=== PATIENT | female | born 1970 | race Caucasian/White ===

== ENCOUNTER 2017-11-06 04:15 | Inpatient (IN) | payer OTHER ==
[~2017-11-06] VITALS: Ht 160 cm; Wt 141.0 kg
[~2017-11-06 04:15] MED LIST: ACETAZOLAMIDE250 M1 PO; ATIVAN0.5 M1 PO; CALTRATE 600 +1 EACH PO; CLARITIN10 M1 PO; VITAMIN D1000 UNIT PO
--- NOTE | 2017-11-06 13:57 | Operative Report ---
Operative/Inv Procedure Report Surgery Date: 11/06/17 Name of Procedure: Laparoscopic Sleeve Gastrectomy Pre-Operative Diagnosis: Morbid Obesity BMI 55, ROBERT, Pseudotumor Cerebri Post-Operative Diagnosis: Same Estimated Blood Loss: less than 50ml Surgeon/Felt Pad Cutter: Ruben Uribe DO Anesthesia: general endotracheal tube IV Fluids: 1000 cc Drains: None Specimens: Stomach Complications: None Condition: Stable Operative Indication: This is a 47-year-old female that presented to the office for workup for bariatric surgery. After appropriate workup was completed I discussed with the patient the band, the sleeve, and the gastric bypass. The patient chose to undergo a sleeve gastrectomy. All risks including but not limited to bleeding, infection, leak, stricture, injury to surrounding bowel/esophagus/stomach/liver/ spleen, long-term reflux, DVT/PE, and mortality of 06/999 patients were discussed in detail. The patient understood everything and decided to proceed. Operative/Procedure Note Note: The patient was brought to the operating room and placed on the operating room table in supine position. Venodyne stockings were placed and adequate general endotracheal anesthesia was obtained. The patient was prepped and draped in standard surgical fashion. Began the procedure by making a 2 cm transverse incision supraumbilically and slightly to the left of the midline. Then using a 12 mm clear Visiport and a 10 mm 0 laparoscope, the abdominal cavity was accessed. Great care was taken to go through the anterior rectus sheath, the posterior rectus sheath, and through the peritoneum. Once we entered the peritoneum the abdominal cavity was insufflated to 15 mmHg. Upon initial examination no obvious gross pathology was seen. Accessory trocars were placed, 5 mm in the epigastrium for the Dillon liver retractor. The retractor was inserted and the liver was retracted anteriorly exposing the hiatus, no hiatal hernia was seen. 5 mm ports were placed in the right and left upper quadrant, a 5 mm left lateral port, and a 15 mm right lateral port. Began the procedure by mobilizing the greater curvature of the stomach approximately 7 cm from the pylorus. Once the retrogastric space was reached the whole greater curvature was mobilized maintaining hemostasis using Harmonic scalpel. Full hiatal dissection was performed, no hiatal hernia was seen. Posterior adhesions were taken down using Harmonic scalpel as well. Once the stomach was adequately mobilized a 38 Yoruba bougie was inserted and placed along the lesser curvature of the stomach. Once the bougie was in the appropriate position we began creating our sleeve, two 60 mm black staple loads with seamguard followed by three 60 mm purple staple loads with seamguard as well. Great care was taken to leave ample room at the incisura angularis, to prevent any twisting or kinking of the sleeve, to stay lateral to the esophagogastric fat pad, and to do a full fundal excision. At the completion of the staple line the staple line was examined, it appeared intact and no obvious bleeding was noted. The bougie was removed, the sleeve was lying nicely without any twisting or kinking. The resected stomach was removed through the right lateral port site. The port and the left upper quadrant were irrigated until clear. All ports were removed under direct visualization no obvious bleeding was noted. The 15 mm port site fascia was closed using 0 Vicryl suture. The skin was closed using 4-0 Monocryl. Steri-Strips and dressings were placed. The patient was successfully extubated and transferred to the recovery room in stable condition. The patient tolerated the procedure well with no complications. Findings: No hiatal hernia, 38 Fr bougie
--- NOTE | 2017-11-06 15:04 | Surg Short-stay <48hrs Dis Sum ---
Visit Information Visit Dates Admission Date: 11/06/17 Discharge Date: 11/08/17 Surgical Short Stay DC Summary Admission Diagnosis: Morbid Obesity (BMI 55), ROBERT, Pseudotumor Cerebri Final Diagnosis: SAME ABOVE, S/P Surgery Date: 11/06/17 Name of Procedure: Laparoscopic Sleeve Gastrectomy Procedure(s): Surgery Date: 11/06/17 Name of Procedure: Laparoscopic Sleeve Gastrectomy Summary/Significant Findings: Electively scheduled laparoscopic sleeve gastrectomy on 11/06/17 by , for history of morbid obesity (BMI 55), ROBERT, and Pseudotumor Cerebri. Upper gi study negative for leak and obstruction, on post-op day#1. Started on stage 1 diet post-operatively. Pain control titrated from iv to oral medication. No lovenox indicated at the time of discharge, according to her pre-op risk assessment. Condition at Discharge: stable Discharge Disposition: home or self care Discharge instructions provided to patient/family: Yes Post discharge follow-up plan: one week follow up with Copies to: Mack DAMON,Akira Hanna
--- NOTE | 2017-11-06 15:07 | Patient Discharge Instructions ---
Discharge Instructions General Discharge Information You were seen/treated for: Morbid Obesity (BMI 55), ROBERT, Pseudotumor Cerebri You had these procedures: Surgery Date: 11/06/17 Name of Procedure: Laparoscopic Sleeve Gastrectomy Watch for these problems: fever>101.3, increased pain, redness/swelling/drainage, dizziness, shortness of breath, chest pains No bath, but you may shower: Yes Other wound care: ok to remove dressings. leave white steri strips in place. keep incisions clean & dry. Diet Continue normal diet: No Recommended Diet: Bariatric Activity Full Activity/No Limits: No Activity Self Limited: Yes Pounds, do NOT lift more than: 10 Other activity limits: no heavy lifting. no strenuous activity. Acute Coronary Syndrome Inclusion Criteria At DC or during hospital stay patient has or had the following: ACS DIAGNOSIS No Discharge Core Measures Meds if any: Prescribed or Continued at Discharge Meds if any: NOT Prescribed or Continued at Discharge Congestive Heart Failure Inclusion Criteria At DC or during hospital stay patient has or had the following: CHF DIAGNOSIS No Discharge Core Measures Meds if any: Prescribed or Continued at Discharge Meds if any: NOT Prescribed or Continued at Discharge Cerebrovascular accident Inclusion Criteria At DC or during hospital stay patient has or had the following: CVA/TIA Diagnosis No Discharge Core Measures Meds if any: Prescribed or Continued at Discharge Meds if any: NOT Prescribed or Continued at Discharge Venous thromboembolism Inclusion Criteria VTE Diagnosis No VTE Type NONE VTE Confirmed by (Test) NONE Discharge Core Measures - Per Current guidelines, there needs to be overlap - treatment for the first 5 days of Warfarin therapy. - If discharged on Warfarin prior to 5 days of - overlap therapy, the patient will need to be - assessed for post discharge needs including - *Post discharge parental anticoagulation - *Warfarin and/or parental anticoagulation education - *Follow up date to check INR post discharge At least 5 days overlap therapy as Inpatient No Meds if any: Prescribed or Continued at Discharge Note: Overlap Therapy is Warfarin and Anticoagulant Meds if any: NOT Prescribed or Continued at Discharge
[2017-11-06] MEDS ORDERED: HYCET 7.5 MG-3473 ML PO (15:08)
[2017-11-06] MEDS ORDERED: PROTONIX40 M3 PO (15:08)
--- NOTE | 2017-11-06 15:10 | Admission Core Measures ---
Acute Coronary Syndrome (CM) ACS Core Measures Acute Coronary Syndrome Diagnosis No Congestive Heart Failure (NEW) CHF Core Measures Congestive Heart Failure Diagnosis No Cerebrovascular Accident CVA Core Measures CVA/TIA Diagnosis No Venous Thromboembolism VTE Core Brennen (View Protocol) VTE Risk Factors Surgery No Mechanical VTE Prophylaxis d/t N/A MechProphylax Ordered No VTE Pharm Prophylaxis d/t NA PharmProphylax ordered Problem List As ranked by this Provider includes Assessment & Plan 1. S/P laparoscopic sleeve gastrectomy 2. Pseudotumor cerebri 3. Morbid obesity HOME MEDS Home Med List Acetazolamide 250 MG TABLET 1 TAB PO PRN intracranial hypertension (Reported) Calcium Carbonate/Vitamin D3 (Caltrate 600 + D Tablet) 600 MG-800 TABLET 1 TAB PO DAILY supplement (Reported) Cholecalciferol (Vitamin D3) (Vitamin D) 1,000 UNIT TABLET 1 TAB PO DAILY supplement (Reported) Hydrocodone/Acetaminophen (Hycet 7.5 MG-325 MG/15 Ml Soln) 7.5 MG-325 MG/15 ML SOLUTION 15 ML PO Q4-6 PRN PRN pain control Loratadine (Claritin) 10 MG TABLET 1 TAB PO DAILY allergies (Reported) Lorazepam (Ativan) 0.5 MG TABLET 1 TAB PO DAILY NEEDED anxiety (Reported) Pantoprazole Sodium (Protonix) 40 MG TABLET.DR 1 TAB PO DAILY ulcer risk reduction
--- NOTE | 2017-11-06 15:19 | PN- Bariatrics ---
Subjective Subjective: POST-OP NOTE Reports some epigastric discomfort. Unsure if she feels nauseous. Blood pressure 160s/80s in pacu, but she denies history of high blood pressure. Not yet out of bed. She apparently takes acetazolamine for history of pseudotumor cerebri, but this is only once every few months that she requires this medication. No dizziness. No shortness of breath. No chest pains. Objective Vital Signs and I&Os pacu flowsheet reviewed General - alert & oriented x 3. sleepy. uncomfortable. Lungs - clear bilaterally. no w/r/r. Cardiac - s1s2. reg. Abdomen - dressings c/d/i. expected tiana-incisional tenderness. no drains. Extremities - warm bilaterally. no c/c/e. calves soft and nontender b/l. athrombics active b/l. Current Medications: Current Medications Sig/Jovita Start time Last Medication Dose Route Stop Time Status Admin Clindamycin 900 MG ONCE 11/06 0000 NR Dextrose/Water 50 ML IV 11/06 2359 Heparin Sodium 0 .STK-MED ONE 11/06 1111 DC (Porcine) .ROUTE Heparin Sodium 5,000 UNIT ONCE 11/06 0000 NR (Porcine) SC 11/06 2359 Results Last 48 Hours of Labs: Laboratory Tests 11/06 1038 Urines Urine Test NEGATIVE Assessment/Plan Assessment/Plan This 47 year old female with hx morbid obesity (BMI 55), ROBERT, and Pseudotumor Cerebri, is POD#0 s/p laparoscopic sleeve gastrectomy stage 1 diet as tolerated npo after midnight for possible upper gi study in am tiana-operative clinda x 2 doses pain control as needed anti-emetics as needed oob/ambulation when more awake monitor blood pressure (she does not take medications at home for her blood pressure) hep sc - dvt ppx, transition to lovenox 40 daily tomorrow if labs stable protonix - gi ppx d/c planning 1-2 days will d/w Core Measures Venous Thromboembolism VTE Risk Factors Surgery No Mechanical VTE Prophylaxis d/t N/A MechProphylax Ordered No VTE Pharm Prophylaxis d/t NA PharmProphylax ordered
[2017-11-06 16:29] VITALS: BP 152/88
[2017-11-06 20:30] VITALS: BP 144/80
[2017-11-07 06:39] VITALS: BP 130/70
--- NOTE | 2017-11-07 07:35 | PN- General Surgery ---
See Addendum Subjective Subjective: Patient doing fair this am. Had issues with pain, nausea and dry heaves overnight. Ambulating and voiding without any difficulty. Denies any other issues or complaints. No other concerns per nursing. Objective Vital Signs and I&Os Vital Signs Date Time Temp Pulse Resp B/P B/P Pulse O2 O2 Flow FiO2 Mean Ox Delivery Rate 11/07 0539 98.7 73 20 130/70 97 Room Air 11/06 2030 98.0 87 18 144/80 95 Room Air 11/06 2000 95 Room Air 11/06 1829 95 Room Air 11/06 1629 97.5 71 18 152/88 94 Room Air 11/06 1600 94 Room Air Intake & Output 11/07 0811/07 0000 11/06 1600 11/06 0800 11/06 0000 11/05 1600 Intake Total 500 1280 185 Output Total 0 0 Balance 500 1280 185 Intake, IV 500 1100 125 Intake, Oral 180 60 Number 0 0 Bowel Movements Output, Urine 0 0 Patient 311 lb Weight Physical Exam: General: A, A, NAD Abdomen: Obese, soft, nt, nd, incisions covered with gauze and a tegederm, one with serosanginous strikethrough, no surrounding edema, erythema or ecchymosis Extremities: No clubbing, cyanosis or edema Current Medications: Current Medications Sig/Jovita Start time Last Medication Dose Route Stop Time Status Admin Acetaminophen 1,000 MG Q6 11/06 1800 AC 11/07 N/A 1 UNIT IV 11/07 1214 0617 Clindamycin 900 MG Q8H 11/06 2000 DC 11/07 Dextrose/Water 50 ML IV 11/07 0444 0409 Clindamycin 900 MG ONCE 11/06 0000 DC Dextrose/Water 50 ML IV 11/06 2359 Dexamethasone 8 MG ONCE PRN 11/06 1615 AC IV PUSH Dextrose/Sodium 1,000 ML Q8H 11/06 1615 AC 11/07 Chloride IV 0409 Heparin Sodium 5,000 UNIT Q8 11/06 2200 AC 11/07 (Porcine) SC 0518 Heparin Sodium 0 .STK-MED ONE 11/06 1111 DC (Porcine) .ROUTE Heparin Sodium 5,000 UNIT ONCE 11/06 0000 DC (Porcine) SC 11/06 2359 Hydrocodone Bitart/ 15 ML Q6P PRN 11/06 1615 AC Acetaminophen PO Loratadine 10 MG DAILY 11/07 0900 AC PO Lorazepam 0.5 MG BID PRN 11/06 1500 AC PO 11/13 1459 Morphine Sulfate 2 MG Q4-6 PRN PRN 11/06 1615 AC IV Ondansetron HCl 4 MG Q6P PRN 11/06 1615 AC 11/06 IV 2357 Pantoprazole Sodium 40 MG DAILY 11/07 0900 AC IV Simethicone 40 MG Q4-6 PRN PRN 11/06 1615 AC 11/07 PO 0409 Results Last 48 Hours of Labs: Laboratory Tests 11/07 11/06 0646 1038 Chemistry Sodium Pending Potassium Pending Chloride Pending Carbon Dioxide Pending Anion Gap Pending BUN Pending Creatinine Pending BUN/Creatinine Ratio Pending Glucose Pending Magnesium Pending Hematology CBC w Diff Pending WBC Pending RBC Pending Hgb Pending Hct Pending MCV Pending MCH Pending MCHC Pending RDW Pending Plt Count Pending MPV Pending Urines Urine Test NEGATIVE Recent Imaging Studies: UGI 11/07/17: Unremarkable examination with no evidence of contrast leak or gastric outlet obstruction. Assessment/Plan Assessment/Plan This is a 47 yo female who is POD #1 from Robotic/Laparoscopic Sleeve Gastrectomy Ambulate/IS GI/DVT Px, changed hep sq to lovenox sq PRN analgesia/antiemetics UGI negative Labs look good Bariatric Clears Likely dc home w/o services tn vs tomorrow, Case d/w Dr. Uribe Problem List: 1. Morbid obesity 2. S/P laparoscopic sleeve gastrectomy Core Measures Venous Thromboembolism VTE Risk Factors Surgery No Mechanical VTE Prophylaxis d/t N/A MechProphylax Ordered No VTE Pharm Prophylaxis d/t NA PharmProphylax ordered
[2017-11-07 08:08] LABS: ABSOLUTE BASOPHIL COUNT 0 /CUMM (0.0-0.2); ABSOLUTE EOSINOPHIL COUNT 0 /CUMM (0.0-0.7); ABSOLUTE GRANULOCYTE CT 8.7 /CUMM (1.4-6.5); ABSOLUTE LYMPH COUNT 1.2 /CUMM (1.2-3.4); ABSOLUTE MONOCYTE COUNT 0.7 /CUMM (0.10-0.60); BASOPHIL % 0.2 % (0.0-2.0); EOSINOPHIL % 0 % (0-5); GRANULOCYTE % 82.1 % (42.2-75.2); HEMATOCRIT 37.5 % (37-47); MEAN CORPUSCULAR HGB 28.3 PG (27.0-31.0); MEAN CORPUSCULAR HGB CONC 33.5 G/DL (33.0-37.0); MEAN CORPUSCULAR VOLUME 84.7 FL (81.0-99.0); PLATELET COUNT 284 /CUMM (130-400); RBC DISTRIBUTION WIDTH 14.5 % (11.5-14.5); RED BLOOD CELL CT 4.43 /CUMM (4.20-5.40); WHITE BLOOD CELL COUNT 10.6 /CUMM (4.8-10.8)
--- NOTE | 2017-11-07 10:50 | RADIOLOGY REPORT ---
EXAMINATION: FLUOROSCOPY UPPER GI WITH GASTROGRAFIN WITH KUB CLINICAL INFORMATION: 1 day status post sleeve gastrectomy. Postoperative evaluation. Evaluate for leak/obstruction. COMPARISON: CT scan of the chest, abdomen and pelvis dated 04/11/2013. TECHNIQUE: A preliminary return checker view of the abdomen was performed on 2 images. A limited Gastrografin upper GI study was performed using 30 ml of Gastroview with the patient in the semiupright position. Multiple spot films (9) and 1 cine fluoroscopy run were acquired. FINDINGS: The preliminary return checker views of the abdomen demonstrates postsurgical suture line in the epigastric region. Normal bowel gas pattern is seen without abnormal bowel distention noted. Mild S-shaped thoracolumbar scoliosis and multilevel mild vertebral spondylosis is seen. Esophageal distensibility and motility is normal. The GE junction is located below the level of the diaphragm and no GE reflux seen. The remnant gastric pouch is normal with no abnormal distention or contrast leak seen. There is prompt emptying of contrast into the duodenum, which is unremarkable in appearance. FLUOROSCOPY TIME: 2.11 minutes. IMPRESSION: Unremarkable examination with no evidence of contrast leak or gastric outlet obstruction.
[2017-11-07 14:36] VITALS: BP 136/68
[2017-11-07 22:21] VITALS: BP 112/66
[2017-11-08 06:38] VITALS: BP 110/50
--- NOTE | 2017-11-08 07:34 | PN- Bariatrics ---
Subjective Subjective: Resolved nausea. Tolerating stage 1 diet. +bm. Voiding well. Ambulating without difficulty. No dizziness. No shortness of breath. No chest pains. Objective Vital Signs and I&Os Vital Signs Date Time Temp Pulse Resp B/P B/P Pulse O2 O2 Flow FiO2 Mean Ox Delivery Rate 11/08 637 98.2 66 20 110/50 98 Room Air 11/08 0600 Room Air 11/07 2221 98.3 87 16 112/66 97 Room Air 11/07 2200 96 Room Air / 1436 98.7 79 16 136/68 97 Room Air 11/07 1400 97 Room Air 11/07 0800 96 Room Air Intake & Output 11/08 0811/08 0000 11/07 1600 11/07 0800 11/07 0000 11/06 1600 Intake Total 1110 1200 1750 1280 185 Output Total 009 877 0994 400 0 0 Balance -450 855 27 8741 1280 185 Intake, IV 900 1050 1750 1100 125 Intake, Oral 210 150 0 180 60 Number 1 0 0 0 Bowel Movements Output, Urine 141 896 7671 400 0 0 Patient 311 lb Weight Physical Exam: General - alert & oriented x 3. comfortable. no acute distress. Lungs - clear bilaterally. no w/r/r. Cardiac - s1s2. reg. Abdomen - soft. dressings c/d/i. expected tiana-incisional tenderness. no drains. Extremities - warm bilaterally. no c/c/e. calves soft and nontender b/l. athrombics in place. Current Medications: Current Medications Sig/Jovita Start time Last Medication Dose Route Stop Time Status Admin Acetaminophen 1,000 MG Q6 11/06 1800 DC 11/07 N/A 1 UNIT IV 11/07 1214 0617 Dexamethasone 8 MG ONCE ONE 11/07 1115 DC 11/07 IV 11/07 1116 1127 Dexamethasone 8 MG ONCE PRN 11/06 1615 DC IV PUSH Dextrose/Sodium 1,000 ML Q8H 11/06 1615 AC 11/08 Chloride IV 0532 Enoxaparin Sodium 40 MG DAILY 11/08 0900 DC SC Enoxaparin Sodium 40 MG DAILY 11/07 1330 AC 11/07 SC 1424 Enoxaparin Sodium 40 MG DAILY 11/07 1114 DC SC Heparin Sodium 5,000 UNIT Q8 11/06 2200 DC 06/07 (Porcine) SC 0518 Hydrocodone Bitart/ 15 ML Q6P PRN 11/06 1615 AC Acetaminophen PO Loratadine 10 MG DAILY 11/07 0900 AC PO Lorazepam 0.5 MG BID PRN 11/06 1500 AC PO 11/13 1459 Metoclopramide HCl 10 MG Q6P PRN 11/07 1615 AC IV Morphine Sulfate 2 MG Q4-6 PRN PRN 11/06 1615 AC IV Ondansetron HCl 4 MG .STK-MED ONE 11/07 0853 DC IM 11/07 0854 Ondansetron HCl 4 MG Q6P PRN 11/06 1615 AC 11/07 IV 0857 Pantoprazole Sodium 40 MG DAILY 11/07 899 AC 11/07 IV 0842 Patient Medication 1 ED ONE ONE 11/07 1645 DC Teaching ED 11/07 1646 Promethazine HCl 25 MG Q4P PRN 11/07 1615 AC 11/07 IV 11/14 161 1614 Simethicone 40 MG Q4-6 PRN PRN 11/06 1615 AC 11/07 PO 0409 Results Last 48 Hours of Labs: Laboratory Tests 11/07 11/06 0646 1038 Chemistry Sodium (137 - 145 mmol/L) 138 Potassium (3.5 - 5.1 mmol/L) 4.1 Chloride (98 - 107 mmol/L) 107 Carbon Dioxide (22 - 30 mmol/L) 17 L Anion Gap (5 - 16) 13 BUN (7 - 17 mg/dL) 2 L Creatinine (0.5 - 1.0 mg/dL) 0.4 L Estimated GFR (>60 ml/min) > 60 BUN/Creatinine Ratio (7 - 25 %) 5.0 L Glucose (65 - 99 mg/dL) 117 H Magnesium (1.6 - 2.3 mg/dL) 1.9 Hematology CBC w Diff NO MAN DIFF REQ WBC (4.8 - 10.8 /CUMM) 10.6 RBC (4.20 - 5.40 /CUMM) 4.43 Hgb (12.0 - 16.0 G/DL) 12.6 Hct (37 - 47 %) 37.5 MCV (81.0 - 99.0 FL) 84.7 MCH (27.0 - 31.0 PG) 28.3 MCHC (33.0 - 37.0 G/DL) 33.5 RDW (11.5 - 14.5 %) 14.5 Plt Count (130 - 400 /CUMM) 284 MPV (7.4 - 10.4 FL) 9.0 Gran % (42.2 - 75.2 %) 82.1 H Lymphocytes % (20.5 - 51.1 %) 11.0 L Monocytes % (1.7 - 9.3 %) 6.7 Eosinophils % (0 - 5 %) 0 Basophils % (0.0 - 2.0 %) 0.2 Absolute Granulocytes (1.4 - 6.5 /CUMM) 8.7 H Absolute Lymphocytes (1.2 - 3.4 /CUMM) 1.2 Absolute Monocytes (0.10 - 0.60 /CUMM) 0.7 H Absolute Eosinophils (0.0 - 0.7 /CUMM) 0 Absolute Basophils (0.0 - 0.2 /CUMM) 0 Urines Urine Test NEGATIVE Assessment/Plan Assessment/Plan This 47 year old female with hx morbid obesity (BMI 55), ROBERT, and Pseudotumor Cerebri, is POD#2 s/p laparoscopic sleeve gastrectomy tolerating stage 1 diet nausea resolved not requiring narcotic pain control oob/ambulating without difficulty lovenox - dvt ppx protonix - gi ppx d/c home today will d/w Core Measures Venous Thromboembolism VTE Risk Factors Surgery No Mechanical VTE Prophylaxis d/t N/A MechProphylax Ordered No VTE Pharm Prophylaxis d/t NA PharmProphylax ordered
[2017-11-08] MEDS ORDERED: HYCET 7.5 MG-3473 ML PO (07:41)
[2017-11-08] MEDS ORDERED: ZANTAC150 M1 PO (07:41)
[2017-11-08] MEDS ORDERED: LOVENOX40 MG/0.1 SC (10:06)
== END 2017-11-08 10:26 | DRG 621 ==
LOC: SDA 04:15 → ENRESERV 14:36 → ENTRNSPT 15:40 → EDTRNSPTSTS 15:50 → EDTRNSPT 15:50 → 2NB 15:56 → CMPTRNSPT 16:11 → ENPENDDIS 11-08 07:48 → 2NB 11-08 10:26
PROVIDERS: Physician Assistant
PROC: 0DB64Z3 Excision of Stomach, Percutaneous Endoscopic Approach, Vertical (ICD-10-PCS; principal; 2017-11-06)
DX: E66.01 Morbid (severe) obesity due to excess calories (principal); Z68.43 Body mass index [BMI] 50.0-59.9, adult; G47.33 Obstructive sleep apnea (adult) (pediatric); G93.2 Benign intracranial hypertension; Z88.1 Allergy status to other antibiotic agents; Z91.040 Latex allergy status
CPT/HCPCS: 2NBP; 36592; 74240; 81025; 82436; J0131; J1100; J1170; J1644; J1650; J2250; J2405; J2550; J2765; J3010; J7042